=== PATIENT | female | born 1970 | race Caucasian/White ===

== ENCOUNTER 2016-10-01 10:02 | Emergency (ER) | payer OTHER, BC ==
[2016-10-22] MEDS ORDERED: ZONEGRAN PO (15:57)
[2016-10-22] MEDS ORDERED: MIRALAX POWDER1 PKT PO (15:58)
[2016-10-22] MEDS ORDERED: VIMPAT200 MG PO (15:58)
== END 2016-10-01 13:51 | disposition home or self-care (01) ==
LOC: ER 10:02
DX: S20.212A Contusion of left front wall of thorax, initial encounter (principal); Z88.8 Allergy status to other drugs, medicaments and biological substances; V49.9XXA Car occupant (driver) (passenger) injured in unspecified traffic accident, initial encounter
CPT/HCPCS: 71250; 73140-RT; 74176; 93005; 99285; A9270-GY

== ENCOUNTER 2016-10-31 10:31 | Day surgery (SDC) | payer BC ==
--- NOTE | ~2016-10-31 | EGD ---
EGD REPORT [facility] [address] [place]. [id number] NAME: TANIA BOYKIN : 74 STATUS : REG [facility] PAT#: [id number] AGE: 46 ADM/REG DATE : 10/31/16 MR#: [id number] REPORT SERV DATE: 10/31/16 DICTATED BY: WARREN WOLFE DATE: 10/31/16 REPORT STATUS : Draft TRANSCRIBED BY: [facility] DATE: 10/31/16 Endoscopy Center Patient Name: Tania Boykin Date of : 1970 Attending MD: SANDY WOLFE MD Procedure Date No Time: 10/31/2016 Procedure: Colonoscopy Indications: Hematochezia Medicines: See the Anesthesia note for documentation of the administered medications Complications: No immediate complications. Estimated blood loss: None. Procedure: Pre-Anesthesia Assessment: - ASA Grade Assessment: II - A patient with mild systemic disease. - Prior to the procedure, a History and Physical was performed, and patient medications and allergies were reviewed. The patient's tolerance of previous anesthesia was also reviewed. The risks and benefits of the procedure and the sedation options and risks were discussed with the patient. All questions were answered, and informed consent was obtained. Prior Anticoagulants: The patient has taken no previous anticoagulant or antiplatelet agents. After reviewing the risks and benefits, the patient was deemed in satisfactory condition to undergo the procedure. After I obtained informed consent, the scope was passed under direct vision. Throughout the procedure, the patient's blood pressure, pulse, and oxygen saturations were monitored continuously. The PCF [id number] was introduced through the anus and advanced to the terminal ileum. The ileocecal valve, appendiceal orifice, terminal ileum and rectum were photographed. The entire colon was examined. The colonoscopy was performed without difficulty. The patient tolerated the procedure well. The quality of the bowel preparation was adequate. Findings: The perianal and digital rectal examinations were normal. The terminal ileum appeared normal. Non-bleeding internal hemorrhoids were found during retroflexion and were Grade I (internal hemorrhoids that do not prolapse). No other significant abnormalities were identified in a careful examination of the remainder of the colon. Many medium-mouthed diverticula were found in the sigmoid colon. EGD REPORT [address] [address] NAME: TANIA BOYKIN : 74 STATUS : REG [facility]#: [id number] AGE: 46 ADM/REG DATE : 10/31/16 MR#: [id number] REPORT SERV DATE: 10/31/16 DICTATED BY: WARREN WOLFE DATE: 10/31/16 REPORT STATUS : Draft TRANSCRIBED BY: [employer] DATE: 10/31/16 Impression: - The examined portion of the ileum was normal. - Non-bleeding internal hemorrhoids. - Moderate diverticulosis in the sigmoid colon. Recommendation: - Patient has a contact number available for emergencies. The signs and symptoms of potential delayed complications were discussed with the patient. Return to normal activities tomorrow. Written discharge instructions were provided to the patient. - Regular diet. - Discharge patient to home. - Continue present medications. - Repeat colonoscopy in 5 years for surveillance. Procedure Code(s): --- Professional --- 44181, Colonoscopy, flexible, proximal to splenic flexure; diagnostic, with or without collection of specimen(s) by brushing or washing, with or without colon decompression (separate procedure) Diagnosis Code(s): --- Professional --- K64.0, First degree hemorrhoids K57.30, Diverticulosis of large intestine without perforation or abscess without bleeding K92.1, Melena CPT copyright 2013 [employer]. All rights reserved. The codes documented in this report are preliminary and upon optical laboratory manager review may be revised to meet current compliance requirements. SANDY WOLFE MD 10/31/2016 11:56 AM This report has been signed electronically. Number of Addenda: 0 Note Initiated On: 10/31/2016 11:01 AM Scope Withdrawal Time 0 hours 10 minutes 9 seconds [id number] [place] [id number]
[~2016-10-31 10:31] MED LIST: MIRALAX POWDER1 PKT PO; VIMPAT200 MG PO; ZONEGRAN PO
== END 2016-10-31 23:59 | disposition home or self-care (01) ==
LOC: DMU 10:31
PROVIDERS: Internal Medicine Gastroenterology
PROC: 0DJD8ZZ Inspection of Lower Intestinal Tract, Via Natural or Artificial Opening Endoscopic (ICD-10-PCS; principal; 2016-10-31 12:00)
DX: K64.0 First degree hemorrhoids (principal); K57.30 Diverticulosis of large intestine without perforation or abscess without bleeding; G40.909 Epilepsy, unspecified, not intractable, without status epilepticus; K92.1 Melena; Z98.890 Other specified postprocedural states; Z86.010 Personal history of colon polyps; Z87.891 Personal history of nicotine dependence; Z97.8 Presence of other specified devices; Z88.8 Allergy status to other drugs, medicaments and biological substances; E78.00 Pure hypercholesterolemia, unspecified; Z91.010 Allergy to peanuts; Z79.899 Other long term (current) drug therapy
CPT/HCPCS: 36415; 84703